=== PATIENT | female | born 1935 | race Caucasian/White ===

== ENCOUNTER 2025-09-18 16:59 | Emergency (ER) | payer MEDICARE, OTHER ==
[~2025-09-18] VITALS: Ht 157.5 cm; Wt 77.3 kg
[2025-09-18 17:15] VITALS: TEMP 98
[2025-09-18 17:26] LABS: GLUCOMETER DEV NAME(LOC) ERT.7; GLUCOSE,POINT OF CARE 146 MG/DL (70-110)
[2025-09-18] MEDS: LIDOCAINE 1%/EPI 1:200,000/PF 10 ML VIAL SQ ONE (18:29)
[2025-09-18] MEDS: ACETAMINOPHEN 500 MG TABLET PO ONE (18:30)
[2025-09-18] MEDS: BACITRACIN 0.9 GM PACKET OINTMENT TP ONE (18:30)
[2025-09-18] MEDS: PERTUSS(ACELL),DIPH,TET/PF 0.5 ML SYRINGE [ADULT] IM. ONE (18:31)
[2025-09-18] MEDS ORDERED: ACET-3385 PO (19:17)
[2025-09-18 20:25] VITALS: BP 154/74; PULSE 88; RESP 18; O2SAT 96
== END 2025-09-18 20:41 | disposition home or self-care (01) ==
LOC: EMS 16:59
DX: S01.81XA Laceration without foreign body of other part of head, initial encounter (principal); E11.9 Type 2 diabetes mellitus without complications; E78.00 Pure hypercholesterolemia, unspecified; I10 Essential (primary) hypertension; W22.03XA Walked into furniture, initial encounter; Y93.89 Activity, other specified; Y92.89 Other specified places as the place of occurrence of the external cause; Y99.8 Other external cause status
CPT/HCPCS: 99285; 70450; 82962; 72125; 90715; 90471; 12013; J3490

== ENCOUNTER 2025-09-25 16:25 | Emergency (ER) | payer MEDICARE, OTHER ==
[~2025-09-25] VITALS: Ht 152.4 cm; Wt 66.0 kg
[~2025-09-25 16:25] MED LIST: ACET-3385 PO
[2025-09-25 16:39] VITALS: BP 181/73; PULSE 76; RESP 16; TEMP 97.9; O2SAT 96
== END 2025-09-25 17:50 | disposition home or self-care (01) ==
LOC: EMS 16:26
DX: S01.81XD Laceration without foreign body of other part of head, subsequent encounter (principal); E11.9 Type 2 diabetes mellitus without complications; E78.00 Pure hypercholesterolemia, unspecified; I10 Essential (primary) hypertension; Z79.899 Other long term (current) drug therapy; W19.XXXD Unspecified fall, subsequent encounter
CPT/HCPCS: 99282; Z7502